=== PATIENT | male | born 1935 | race Caucasian/White ===

== ENCOUNTER → 2018-03-13 | Outpatient (CLI) | payer OTHER, BC ==
[~2018-03-13] VITALS: Ht 172.7 cm; Wt 63.5 kg
[~2018-03-13] MED LIST: ASPIRIN81 M2 PO; BETAPACE AF120 MG PO; COSOPT OCUMETER10 M1 OPHTHALMIC; COUMADIN 5 MG TA5 M1 PO; FOLIC ACID1 MG PO; LUMIGAN2.5 M1 OP; LUTEIN20 M1 PO; METHOTREXATE 22.5 MG PO; SIMVASTATIN40 MG PO; VITAMIN B-122500 MCG SUBLING; VITAMIN D3400 UNIT PO; XALATAN2.5 ML OPHTHALMIC
--- NOTE | 2018-03-15 10:25 | P ---
[facility] [place] [address] PROCEDURE REPORT Name: BRAXTONDIMPLE Susan Room #: NATAN GILBERTChichi Lin#: [id number] Admission: 03/13/18 Attend Phys: Dayday Yadav Discharge: Date of : 35 Report #: [id number] THIS REPORT FOR: //name// CC: Dayday Bruce DATE OF SERVICE: 03/13/2018 PROCEDURE PERFORMED: Colonoscopy with polypectomies. HISTORY OF PRESENT ILLNESS: The patient is an 82-year-old male who presents today for screening colonoscopy. Last colonoscopy was 25-30 years ago. He denies any symptoms. However, he apparently has had a positive Cologuard test recently. No family history of colon cancer. PROCEDURE: The risks and benefits of the procedure were explained to the patient, those risks including but not limited to bleeding, perforation and the risk of sedation. He understood these risks and gave informed consent. Sedation was given using propofol per anesthesia. Next, a digital rectal exam was initially performed, which was normal. Next, using a standard Olympus colonoscope, the scope was placed in the patient's anus and advanced under direct vision to the cecum. The overall prep was good. In the cecum, there was a 6 mm sessile polyp, this was removed by snare cautery, otherwise normal. The ileocecal valve was normal. In the proximal ascending colon, a 1.5 cm pedunculated polyp was noted. This was removed by snare cautery as well. In the transverse colon, two polyps are noted. The smallest was 4 mm and removed by cold forceps, the larger was 6 mm and removed by snare cautery. In the descending colon, another 8 mm sessile polyp also removed by snare cautery. The sigmoid colon was normal. The rectal mucosa was normal. On retroflexion, small nonbleeding internal hemorrhoids were noted. The scope was then withdrawn and the procedure terminated. The patient tolerated the procedure well. IMPRESSION: 1. Multiple polyps as described above. 2. Internal hemorrhoids. 3. Otherwise, normal colonoscopy. RECOMMENDATIONS: 1. Await biopsy results. 2. Due to the patient's age, if biopsies are negative for dysplasia or malignancy, no repeat colonoscopy would be needed. [address] [address] PROCEDURE REPORT Name: DIMPLE LIMON Room #: REG WILEY Lin#: [id number] Admission: 03/13/18 Attend Phys: Dayday Yadav Discharge: Date of : 35 Report #: [id number] Thank you for allowing me to participate in his care. <ELECTRONICALLY SIGNED> By: Dayday Valencia MD 03/15/18 1025 1109 30 Dayday Valencia MD /nt
--- NOTE | 2018-03-15 15:06 | PATH ---
[facility] [place] [address] PATHOLOGY RPT PROCEDURE Name: DIMPLE LIMON Susan Room #: REG WILEY Radha.#: [id number] Admission: 03/13/18 Date of : 35 Discharge: Report #: [id number] Path Case #: [id number] [facility] Accession Number: [id number] . 01 Material submitted: . PART A: POLYP AT CECUM PART B: POLYP AT ASCENDING COLON PART C: POLYP AT TRANSVERSE COLON X2 PART D: POLYP AT DESCENDING COLON . 01 Clinical history: . Pre-OP DX: Screening Post-OP DX: Colon polyps . 02 Diagnosis: A. Polyp, cecum, endoscopic biopsy: - Tubular adenoma. - Negative for high-grade dysplasia. . B. Polyp, at ascending colon, endoscopic biopsy: - Tubular adenoma. - Negative for high-grade dysplasia. - Base/stalk showing unremarkable mucosa. . C. Polyp x 2, at transverse colon, endoscopic biopsy: - Tubular adenoma identified in two fragments. - Negative for high-grade dysplasia. . D. Polyp, descending colon polyp, endoscopic biopsy: - Tubular adenoma. - Negative for high-grade dysplasia. (IUV:pit 03/14/2018) QTP/03/14/2018 . 02 Electronically signed: . Yuni Myers MD, Pathologist NPI- [id number] . 01 Gross description: . A. Received in formalin labeled "Dimple Limon, polyp at cecum," are 3 segments of guan soft tissue measuring 1.2 x 0.9 x 0.4 cm in aggregate dimensions and ranging from 0.4 to 0.6 cm in maximum dimension. The specimen is submitted entirely in cassette A1. . B. Received in formalin labeled "Dimple Limon, polyp at ascending colon," is a 1.4 x 0.8 x 0.8 cm polypoid piece of guan soft tissue with a stalk measuring 0.2 cm in length and 0.4 cm in diameter[place] [address] PATHOLOGY RPT PROCEDURE Name: DIMPLE LIMON T Room #: REG WILEY Garcia.#: [id number] Admission: 03/13/18 Date of : 35 Discharge: Report #: [id number] Path Case #: [id number] stalk is inked and the specimen is sectioned perpendicular to the margin and entirely submitted in cassette B1 and B2. . C. Received in formalin labeled "Edis Limonr, polyp transverse colon x2," are 2 segments of guan soft tissue measuring 0.7 x 0.3 x 0.2 cm in aggregate dimensions and ranging from 0.3 to 0.4 cm in maximum dimension. The specimen is submitted entirely in cassette C1. . D. Received in formalin labeled "Darin, [place], polyp at descending colon," is a single segment of guan soft tissue measuring 0.5 cm in maximum dimension. The specimen is entirely submitted in cassette D1. (TSD; 03/13/2018) TOB/TOB . 02 Pathologist provided ICD-10: D12.0, D12.2, D12.3, D12.4 . 02 CPT . 574897, 689953, 394256, 584571 Specimen Comment: A courtesy copy of this report has been sent to Specimen Comment: [phone], . Specimen Comment: Report sent to / DR DECKER Specimen Comment: A duplicate report has been generated due to demographic updates. Performed at: [address] [facility], [place] [id number] MD Leonardo Mensah MD Phone: [phone] Performed at: [address] [id number] MD Yuni Myers MD Phone: [phone]
== END | disposition home or self-care (01) ==
LOC: GI 08:51
DX: Z12.11 Encounter for screening for malignant neoplasm of colon (principal); D12.0 Benign neoplasm of cecum; D12.2 Benign neoplasm of ascending colon; D12.3 Benign neoplasm of transverse colon; D12.4 Benign neoplasm of descending colon; K64.8 Other hemorrhoids; I10 Essential (primary) hypertension; E78.5 Hyperlipidemia, unspecified; I48.91 Unspecified atrial fibrillation; H40.9 Unspecified glaucoma; Z79.82 Long term (current) use of aspirin; Z79.899 Other long term (current) drug therapy; Z79.01 Long term (current) use of anticoagulants; Z87.891 Personal history of nicotine dependence; Z96.641 Presence of right artificial hip joint; Z98.890 Other specified postprocedural states
CPT/HCPCS: 62110; 62900

== ENCOUNTER → 2018-11-29 | Outpatient (CLI) | payer OTHER, BC | LOC: CAT 14:04 | DX: J90 Pleural effusion, not elsewhere classified (principal); R91.8 Other nonspecific abnormal finding of lung field; J98.11 Atelectasis; R91.1 Solitary pulmonary nodule; J84.10 Pulmonary fibrosis, unspecified; J43.9 Emphysema, unspecified; M47.819 Spondylosis without myelopathy or radiculopathy, site unspecified; M48.54XA Collapsed vertebra, not elsewhere classified, thoracic region, initial encounter for fracture; K40.90 Unilateral inguinal hernia, without obstruction or gangrene, not specified as recurrent; Z96.641 Presence of right artificial hip joint ==

== ENCOUNTER → 2018-12-11 | Outpatient (CLI) | payer OTHER, BC | LOC: PET 09:09 | DX: R91.8 Other nonspecific abnormal finding of lung field (principal); J98.11 Atelectasis; K40.90 Unilateral inguinal hernia, without obstruction or gangrene, not specified as recurrent; Z96.641 Presence of right artificial hip joint ==

== ENCOUNTER → 2019-02-03 | Outpatient (CLI) | payer OTHER, BC | LOC: CAT 11:20 | DX: R91.1 Solitary pulmonary nodule (principal); S22.009A Unspecified fracture of unspecified thoracic vertebra, initial encounter for closed fracture; R91.8 Other nonspecific abnormal finding of lung field; J98.11 Atelectasis; I25.10 Atherosclerotic heart disease of native coronary artery without angina pectoris; I70.0 Atherosclerosis of aorta; M47.819 Spondylosis without myelopathy or radiculopathy, site unspecified; X58.XXXA Exposure to other specified factors, initial encounter; Y93.89 Activity, other specified; Y92.89 Other specified places as the place of occurrence of the external cause; Y99.8 Other external cause status ==

== ENCOUNTER → 2019-07-21 | Outpatient (CLI) | payer OTHER, BC | LOC: CAT 13:43 | PROVIDERS: ATTEND Internal Medicine Pulmonary Disease | DX: R91.8 Other nonspecific abnormal finding of lung field (principal); M43.8X4 Other specified deforming dorsopathies, thoracic region ==

== ENCOUNTER 2019-11-21 04:40 | Inpatient (IN) | payer OTHER, BC ==
[~2019-11-21] VITALS: Ht 172.7 cm; Wt 67.1 kg
--- NOTE | ~2019-11-21 | HC ---
[facility] [place] [address] CONSULTATION Name: DIMPLE LIMON Room #: 445-P [facility] IN .R.#: [id number] Admission: 11/21/19 Attend Phys: Devon Maza, Discharge: Date of : 35 Report #: [id number] THIS REPORT FOR: cc: Anthony Bruce MD, Neal A. MD Smithson, David G. MD ~ DATE OF SERVICE: 11/26/2019 HISTORY OF PRESENT ILLNESS: The patient is an 84-year-old white male who fell at home when his socks apparently slipped on the hardwood. He was noted to have a periprosthetic comminuted complex fracture of his right proximal femur. 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 He is limited to less than 20 pounds weightbearing right lower extremity. We are seeing him in Rehabilitation Medicine consultation. PAST MEDICAL HISTORY: Includes atrial fibrillation, on anticoagulation, history of hypertension, elevated lipids. He had a prior right total hip arthroplasty, history of rheumatoid arthritis and he has a large left-sided inguinal hernia with an enlarged scrotum. MEDICATIONS: Please see the full medication listing. HABITS: Past tobacco. No recent usage. ALLERGIES: No known drug allergies. SOCIAL HISTORY: Lives with his , split level house. There are 7 plus 7 steps to get up to a level where there is a bathroom. If he goes in to the garage, he could stay on one level, but there is not a bedroom down there and he would need to utilize a commode as there is not a bathroom. His is ambulatory without gait aids, although he notes she has had some fractures herself in the past. REVIEW OF SYSTEMS: Did not offer any current complaints of chest pain, shortness of breath or abdominal discomfort. PHYSICAL EXAMINATION: GENERAL: An 84-year-old white male, in no obvious distress. He is very pleasant. VITAL SIGNS: Temperature 97.9, pulse 59, respirations 18, blood pressure 125/66. GENERAL: He is alert. He is oriented, appears to be a reasonable historian. HEENT: Facies are symmetric. EXTREMITIES: He has functional range of motion of both upper extremities. Strength is grade 4+/5. DTRs are trace to 1 in his lower extremities. No focal [address] [address] CONSULTATION Name: DIMPLE LIMON Room #: 445-P [facility] IN ..#: [id number] Admission: 11/21/19 Attend Phys: Devon Maza, Discharge: Date of : 35 Report #: [id number] calf swelling. Upon examination of his groin, he does have the very large scrotal mass. This was not examined. He notes he has had it for a number of years. His right hip is dressed with the drain in place. There is no focal calf swelling. He can dorsiflex the right ankle. He has been max assist coming to stand, was able to take a couple of hops mod assist during the transfer. ASSESSMENT: An 84-year-old white male with the following problem list: 1. 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 2. History of atrial fibrillation, on anticoagulation. 3. Large inguinal hernia with scrotal mass. 4. Hypertension. 5. Elevated lipids. 6. Prior history of the right total hip replacement. 7. History of rheumatoid arthritis. 8. Recent confusion appears to be improving. 9. He is noted to have hyponatremia and his last sodium is 125. PLAN: We are assessing the patient's tolerance for therapies. We will need to also assess his 's ability to assist the patient if need be. I am uncertain if he would qualify for an acute [address] [place] [address] inpatient rehabilitation stay. At this point, we are going to follow along with you. By: 1220 0233 Franc Spring MD /ARABELLA
[2019-11-21 04:42] VITALS: BP 123/102
[2019-11-21] MEDS ORDERED: WARFARIN SODIUM4 MG PO (05:28)
[2019-11-21] MEDS ORDERED: LUMIGAN2.5 M1 OP (05:29)
[2019-11-21 05:30] LABS: ABSOLUTE NEUTROPHILS 4.2 thou/uL (1.4-8.2); BASOPHILS 0.6 % (0.0-2.0); EOSINOPHILS 2.1 % (0.0-3.0); HEMATOCRIT 36.7 % (42.0-52.0); HEMOGLOBIN 12.3 gm/dL (14.0-18.0); LYMPHOCYTES 11.6 % (24.0-44.0); MCH 31.1 pg (26.0-34.0); MCHC 33.4 g/dL (28.0-37.0); MONOCYTES 7.6 % (1.0-8.0); PLATELET COUNT 231 thou/uL (150-400); POLYS 78.1 % (36.0-66.0); RBC 3.95 mil/uL (4.50-6.00); RDW 14.1 % (10.5-14.5); WBC 5.3 thou/uL (4.0-11.0)
[2019-11-21] MEDS ORDERED: ASA81BEC PO (05:31)
[2019-11-21] MEDS ORDERED: FOSAMAX 70 MG T70 MG PO (05:32)
[2019-11-21] MEDS ORDERED: XALATAN2.5 ML OPHTHALMIC (05:32)
[2019-11-21] MEDS ORDERED: VITAMIN C500 M1 PO (05:33)
[2019-11-21] MEDS ORDERED: NORVASC 2.5 MG2.5 M1 PO (05:34)
[2019-11-21] MEDS ORDERED: FISH OIL 1,0001 EAC9 PO (05:34)
[2019-11-21 05:52] LABS: CALCIUM 8.4 mg/dL (8.5-10.1); CREATININE 0.5 mg/dL (0.7-1.3); POTASSIUM 3.4 mmol/L (3.5-5.1)
[2019-11-21 06:00] LABS: ALBUMIN 3.1 g/dL (3.4-5.0); DIRECT BILIRUBIN 0.2 mg/dL (<0.1-0.2); TOTAL BILIRUBIN 0.7 mg/dL (0.2-1.0); TOTAL PROTEIN 7.2 g/dL (6.4-8.2)
[2019-11-21 07:05] LABS: APTT 41.7 Seconds (24.5-32.8); INR 2.1; PROTIME 21.1 Seconds (9.3-11.4)
--- NOTE | 2019-11-21 07:52 | NUR ---
CALLED PT'S RAI ON TWO PHONE NUMBERS PROVIDED LEFT VM ON CELLPHONE HOME PHONE JUST RANG AND RANG
--- NOTE | 2019-11-21 11:37 | EKG ---
[facility] [place] [address] ELECTROCARDIOGRAM REPORT Name: BRAXTONHECTORTonya Davis Room #: 170-11 ADM IN M.R.#: [id number] Admission: 11/21/19 Attend Phys: Devon Maza, Discharge: Date of : 35 Report #: [id number] THIS REPORT FOR: cc: Anthony Bruce MD, Neal A. 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
[2019-11-21 13:33] VITALS: BP 127/55
--- NOTE | 2019-11-21 19:09 | NUR ---
Admitted pt. at 1600. Full admission performed. Consulted physician via phone call. Orders given, orders activiated. Pt. is calm and cooperative. Pt. not in pain currently. Fall percautions in place.
[2019-11-21 20:08] VITALS: BP 145/66
--- NOTE | 2019-11-22 04:08 | NUR ---
PT AOX4 WITH INTERMITTENT FORGETFULNESS. PT REPORTS PAIN 5/10 IN RIGHT HIP. PAIN NOTED TO WORSEN WITH TACTILE STIMULATION AND MOVEMENT. PT RECEIVING PRN PO NORCO Q4HR WITH PRN IV MORPHINE Q2HR AVAILABLE. PT TOLERATING PO INTAKE OF FLUIDS AND REGULAR DIET. DR. HERRON OBSERVED COORDINATING CARE WITH PT, PT TO CONTINUE REGULAR DIET THROUGHOUT THIS SHIFT, NPO AT MIDNIGHT ORDER CANCELLED. FREQUENT REPOSITIONING ENCOURAGED. PT NOTED TO SHIFT INDEPENDENTLY WHILE IN BED, REQUIRING ASSIST WITH MOVING UP IN BED. PT CONTINUES RESTING IN BED THROUGHOUT SHIFT, URINAL PROVIDED. PT ENCOURAGED TO NOTIFY STAFF FOR ALL NEEDS, CALL LIGHT WITHIN REACH, BED ALARM ON, BED IN LOWEST POSITION, FREQUENT MONITORING WILL CONTINUE.
[2019-11-22 05:41] VITALS: BP 159/63
[2019-11-22 05:47] VITALS: BP 159/63
[2019-11-22 07:56] LABS: INR 1.8
--- NOTE | 2019-11-22 10:36 | NUR ---
discussed during prime time with bedside nurse, pt inr needs to come down before can have procedure for fx femur. no weekend dc. will cont following as needed for dc needs.
[2019-11-22 17:50] VITALS: BP 162/66
--- NOTE | 2019-11-22 18:18 | NUR ---
Assumed care of pt. at 0700. Pt. calm and cooperative. Pt. informed that he would not be receiving surgery until the earliest being sunday d/t previous medical records needing to be reviewed by phsyicians for surgical purposes. Pt. complained of pain and requested hydrocodone rather than morphine do to fear of constipation and fear of past experience with disimpaction. Pt. had CT performed in the afternoon on RLE. Fall precautions in place.
--- NOTE | 2019-11-23 02:32 | NUR ---
PLEASANT, SLEEPING WELL AFTER HYDROCODONE AT HS, VOIDING WELL WITH URINAL HE NAVIGATES AROUND HIS SIZABLE LEFT HERNIA. APPRECIATES HAVING HIS EYEDROPS RESUMED AT HS. AWARE THAT NECESSARY SURGERY WILL NOT HAPPEN TODAY
[2019-11-23 08:36] VITALS: BP 151/73
[2019-11-23 09:25] LABS: HEMATOCRIT 39.2 % (42.0-52.0); HEMOGLOBIN 13.2 gm/dL (14.0-18.0); MCH 31.2 pg (26.0-34.0); MCHC 33.6 g/dL (28.0-37.0); MCV 92.7 fL (80.0-100.0); RBC 4.23 mil/uL (4.50-6.00); RDW 14.3 % (10.5-14.5); WBC 10.1 thou/uL (4.0-11.0)
[2019-11-23 09:39] LABS: CALCIUM 8.1 mg/dL (8.5-10.1); CREATININE 0.5 mg/dL (0.7-1.3); POTASSIUM 3.9 mmol/L (3.5-5.1)
--- NOTE | 2019-11-23 10:03 | NUR ---
PT CARE ASSUMED AT 0700. A&Ox4. PT IN ROOM WITH PAIN SCALE 4/10 WHEN NOT MOVING. REFUSING PAIN MEDICATION EVEN AFTER PAIN EDUCATION WAS GIVEN. NO SURGERY AT THIS POINT UNTIL MD'S REVIEW THIS CASE. PT HAS A GROIN HERNIA THAT HE IS PUSHING OFF TO HAVE REPAIRED AT THIS MOMENT. IV PATENT WITH NO REDNESS OR EDEMA, SALINE LOCKED. MORNING MEDICATIONS GIVEN. EYEDROPS IN IV BIN, FALL PROTOCOL IN PLACE. CALL LIGHT IN REACH. WILL CONTINUE TO MONITOR. PT REQUESTED TWO URINALS AT BEDSIDE AT ALL TIME.
[2019-11-23 16:25] VITALS: BP 155/78
[2019-11-23 19:59] VITALS: BP 150/68
[2019-11-24 04:00] VITALS: BP 145/82
[2019-11-24 06:13] LABS: INR 1.2; PROTIME 12.4 Seconds (9.3-11.4)
--- NOTE | 2019-11-24 06:32 | HC ---
[facility] [place] [address] CONSULTATION Name: HECTOR LIMONTonya Susan Room #: 445-P [facility] IN M.R.#: [id number] Admission: 11/21/19 Attend Phys: Devon Maza, Discharge: Date of : 35 Report #: [id number] THIS REPORT FOR: cc: Anthony Bruce MD, Neal A. MD Deardorff, Valerie A. MD ~ CC: Devon Bruce DATE OF SERVICE: 11/21/2019 REASON FOR CONSULTATION: Right hip fracture. HISTORY OF PRESENT ILLNESS: The patient is an 84-year-old male who slipped today upstairs while going to the bathroom and sustained a right periprosthetic femur fracture. He denied loss of consciousness. Denies other complaints and complains of right hip and thigh pain. PAST MEDICAL HISTORY: Significant for atrial fibrillation, hypertension, rheumatoid arthritis, hyperlipidemia. There is apparently a lung mass, Dr. Carey is monitoring here at [facility]. PAST SURGICAL HISTORY: Cataract surgery, right total hip replacement done in 2013 at [facility]. SOCIAL HISTORY: He lives with his . Does not use any ambulatory aids inside his house, is a former smoker. Alcohol use is unknown. ALLERGIES: REPORTS SOME MILD ALLERGY TO AN ANTIBIOTIC THAT RESULTED IN A RASH. PRIMARY CARE PHYSICIAN: His primary care doctor is Dr. Bruce. HOME MEDICATIONS: Include dorzolamide/timolol, warfarin, bimatoprost, aspirin, alendronate, latanoprost, vitamin C, omega 3, amlodipine, methotrexate, sotalol, cholecalciferol, lutein, folic acid, and cyanocobalamin. REVIEW OF SYSTEMS: NEUROLOGIC: Denies numbness or tingling. MUSCULOSKELETAL: See HPI. LABORATORY DATA: Done on the date of admission; white blood cell count 5.3, hemoglobin 12.3, hematocrit 36.7, platelet count 231. INR is 2.1. Chemistry is grossly abnormal with a low sodium of 134, potassium 3.4, albumin is low at 3.1. His COVID test is negative. PHYSICAL EXAMINATION: [address] [address] CONSULTATION Name: DIMPLE LIMON Room #: 445-P [facility] IN [facility].#: [id number] Admission: 11/21/19 Attend Phys: Devon Maza, Discharge: Date of : 35 Report #: [id number] GENERAL: The patient is alert and oriented, interacts appropriately. He is a well-developed, well-nourished male in no acute distress. He has normal mood and affect, converses well. VITAL SIGNS: Show a temperature of 37.2, heart rate 60, respiratory rate 16, blood pressure 145/66, pulse oximetry is 95% on room air. EXTREMITIES: Examination of his bilateral upper extremities: Skin is clean, dry and intact. He has grossly normal motor strength and sensation is intact. He is able to move his fingers, forearms, wrists, hands and elbows without difficulty and shoulders without pain. He has no tenderness to palpation. BILATERAL LOWER EXTREMITY EXAMINATION: He has some chronic changes inserted. Some skin changes consistent with venous stasis. He has 2+ dorsalis pedis pulses. He wiggles his toes. He has somewhat of a right mild medial-sided knee joint tenderness, which he reports is chronic. There is mild pain with right knee range of motion. There is no other tenderness to palpation in the entire right lower extremity except for the right thigh. There is no pain with full range of motion. There is grossly normal strength and stability and sensation. Left lower extremity exam, sensation is intact to light touch throughout. He wiggles his toes. 2+ dorsalis pedis pulse, normal. Grossly normal strength, motor and stability and sensation. RADIOGRAPHS: AP pelvis, AP and lateral of the left hip show a total hip periprosthetic fracture with some lateral positioning of the implant that extends almost to the tip of the implant. IMPRESSION AND PLAN: Left periprosthetic hip fracture with an unstable implant. I will discuss with my one of my [facility] partners. Most likely, we will plan for surgery on Sunday or Sunday depending on the availability of surgeon and implant. Most likely, this will need to be converted to a longer stem total hip arthroplasty. Thank you very much. The patient and his gave a strong desire to avoiding any vitamin K due to prior history of severe adverse reaction with a family member. We discussed that I would relay their wishes. <ELECTRONICALLY SIGNED> By: Isaura Murrieta MD 11/24/19 0632 31 [id number] Isaura Murrieta MD /nt
--- NOTE | 2019-11-24 07:35 | NUR ---
ASSUMED PT CARE AT 1900.PT DENIED PAIN THIS SHIFT.PT REPOSITIONED WHILE IN BED.REPORTS PAIN WITH MOVEMENT BUT REF TO TAKE PAIN MED.PT HAS BEEN NPO SINCE [place].MOUTH SWAB PROVIDED.PT WNATS TO KNOW WHAT TIME HIS SURGERY WILL BE.AM NURSE TO INFORM PT SOON THE INFORMATION IS AVAILABLE.REPORT TO AM NURSE.
[2019-11-24 08:00] VITALS: BP 157/80
--- NOTE | 2019-11-24 10:18 | NUR ---
SPOKE WITH PRE OP PT'S SURGERY IS SCEDULED FOR 17:30 GAVE SOTALOL HOLD ALL OTHER MEDS. PT IS NPO
--- NOTE | 2019-11-24 16:43 | NUR ---
ON-GOING ASSESSMENT: PT IS TO GO TO THE OR TODAY FOR SURGERY FOR HIP FX. CM WILL CONTINUE TO FOLLOW.
[2019-11-24 19:54] VITALS: BP 134/70
[2019-11-25] VITALS (9 sets, daily range): BP systolic 122–156; BP diastolic 61–78
--- NOTE | 2019-11-25 04:20 | NUR ---
ASSUMED PT CARE 1899.PT ALERT WITH A LITTLE CONFUSION.PT'S CONFUSION INCREASED THE NIGHT WENT BY.PT CALLED THE NURSES STATION COUPLE OF TIMES SAYING THAT HE IS ALONE IN THE BASEMENT AT THE HOSPITAL.hE ALSO STATED THAT THE PHTSICIAN TOLD HIM THAT HE WILL BE COMING TO SEE HIM BUT HE DIDN'T SHOW UP.PT WAS REORIENTED SEVERAL TIMES.PT WAS OBSERVED GETTING OUT OF BED SEVERAL TIMES WITHOUT ASSISTANCE.PT VERY APOLOGETICAL EACH TIME ABOUT HIS BEHAVIOR.PT STATED"MY WILL BE VERY SUPRISED AT MY BEHAVIOR THIS NIGHT"URINAL AT BEDSIDE WITH DARK YELLOW URINE NOTED.BOTANICAL TECHNICAL OFFICER ON DUTY VISITED PT AT THE TIME,UA ORDER NOTED AND CARRIED OUT.PT NPO SINCE [place].WILL CONT TO MONITOR.
[2019-11-25 06:08] LABS: URINE BILIRUBIN NEGATIVE (Negative); URINE BLOOD TRACE (Negative); URINE CLARITY CLEAR; URINE COLOR YELLOW; URINE GLUCOSE-RANDOM* NEGATIVE (Negative); URINE KETONES 1+ (Negative); URINE LEUKOCYTES NEGATIVE (Negative); URINE NITRITE NEGATIVE (Negative); URINE PROTEIN (DIPSTICK) 1+ (Negative)
[2019-11-25 07:05] LABS: BACTERIA None Seen /HPF (None Seen); CASTS None Seen /LPF (None Seen); CRYSTALS None Seen /LPF (None Seen); SQUAMOUS 0-3 Few /LPF (0-3); URINE RBC 0-2 Rare /HPF (0-2); URINE WBC 0-5 Rare /HPF (0-5)
[2019-11-25 07:47] LABS: HEMATOCRIT 36.6 % (42.0-52.0); HEMOGLOBIN 12.5 gm/dL (14.0-18.0); MCH 31.4 pg (26.0-34.0); MCHC 34.2 g/dL (28.0-37.0); MCV 91.9 fL (80.0-100.0); RBC 3.98 mil/uL (4.50-6.00); RDW 13.9 % (10.5-14.5); WBC 9.3 thou/uL (4.0-11.0)
[2019-11-25 07:54] LABS: CALCIUM 8.1 mg/dL (8.5-10.1); CREATININE 0.6 mg/dL (0.7-1.3); POTASSIUM 3.8 mmol/L (3.5-5.1)
--- NOTE | 2019-11-25 11:33 | NUR ---
PT CARE ASSUMED AT 0700. A&Ox4. PT MAKING STATEMENTS THAT HIS IS RESTING UPSTAIRS AND THAT HE IS IN A HOTEL. DR. DECKER INFORMED AND ADDED FLUIDS TO THE PATIENTS MAR. URINE CULTURE CAME BACK NEGATIVE. PT STATING HE IS IN NO PAIN. PT INFORMED OF SURGERY TIME. AT BED SIDE. IV PATENT WITH NO REDNESS OR EDEMA. FLUIDS INFUSING. SCD'S IN PLACE. NPO SINCE MIDNIGHT. PT COMFORTABLY LAYING IN BED AWAITING SURGERY. FALL PROTOCOL IN PLACE. CALL LIGHT IN REACH. SWABS AT BEDSIDE TO MOISTEN MOUTH.
--- NOTE | 2019-11-25 15:35 | NUR ---
ON-GOING ASSESSMENT: PT IS OUT OF HIS ROOM FOR SURGERY. CM ATTEMPTED TO CONTACT PATIENTS X2. CM WILL FOLLOW UP WITH PATIENT.
--- NOTE | 2019-11-26 04:50 | NUR ---
PT WAS STILL DROWSY BUT EASILY AROUSABLE AT START OF SHIFT.C/O PAIN ON HIS R HIP,MANAGED WITH MED.SCD/KNEE HIGH KATHRIN AND ABDULAZIZ DRSG IN PLACE.HEMOVAC TO HIS R HIP,100ML NOTED SO FAR.PT MORE RESTED THIS SHIFT COMPARED TO THE LAST,SOMEHOW BACK TO HIS BASELINE.PT TOLERATED CLEAR LIQUIDS WELL.URINAL AT BEDSIDE.WILL CONT TO MONITOR.
[2019-11-26 06:04] LABS: HEMATOCRIT 33.1 % (42.0-52.0); HEMOGLOBIN 11.3 gm/dL (14.0-18.0); MCH 31.2 pg (26.0-34.0); MCHC 34.1 g/dL (28.0-37.0); MCV 91.5 fL (80.0-100.0); RBC 3.62 mil/uL (4.50-6.00); RDW 14.1 % (10.5-14.5); WBC 8.6 thou/uL (4.0-11.0)
[2019-11-26 07:35] VITALS: BP 125/66
[2019-11-26 07:41] LABS: CALCIUM 7.9 mg/dL (8.5-10.1); CREATININE 0.5 mg/dL (0.7-1.3); POTASSIUM 4.4 mmol/L (3.5-5.1)
--- NOTE | 2019-11-26 13:25 | O ---
[facility] [place] [address] OPERATIVE REPORT Name: DIMPLE LIMON Room #: 445-P [facility] M.R.#: [id number] Admission: 11/21/19 Attend Phys: Devon Maza, Discharge: Date of : 35 Report #: [id number] THIS REPORT FOR: cc: Anthony Bruce MD, Neal A. MD Clymer, David J. MD ~ CC: Devon Bruce DATE OF SERVICE: 11/25/2019 PREOPERATIVE DIAGNOSIS: Periprosthetic complex comminuted fracture, right proximal femur. POSTOPERATIVE DIAGNOSIS: Periprosthetic complex comminuted fracture, right proximal femur. PROCEDURE: Removal of old failed femoral stem, right femur and revision total hip arthroplasty using revision femoral stem, side plate and multiple cerclage cables. SURGEON: Franc Mccurdy MD INDICATIONS: This 84-year-old gentleman has done well with his right total hip until he fell resulting in a complex comminuted fracture of the proximal femur. We discussed treatment options and elected to go ahead with revision using a longer revision femoral component and the plate with cables. DESCRIPTION OF PROCEDURE: The patient was taken to the operating room where he was placed under general anesthesia. Prophylactic intravenous antibiotics were administered. He was turned to the left lateral decubitus position. The right hip, thigh and leg were meticulously prepped and draped. A long skin incision was made through the old proximal scar and extending distally along the lateral femur. This was extended through fascia exposing the femur. A complex comminuted displaced fracture was identified. Reduction was not feasible with the old femoral stem in place as it had probably been migrated distally. The proximal aspect of the femoral component was visualized with a posterior approach. The capsule and short external rotators were preserved as much as was possible. The old femoral component was loose and was removed without difficulty. Once this was accomplished, the fractures could be realigned in a satisfactory fashion and then secured temporarily with several bone clamps. A size 11 cable trochanteric side plate was then positioned appropriately and secured temporarily with four cables and the bone clamps. Once this was established, the canal could be visualized and was sequentially reamed and trialed using a Redapt femoral revision stem system. The size 15 stem seemed to fit quite nicely and a trial reduction was performed and the hip seemed to be [address] [address] OPERATIVE REPORT Name: LIMONDIMPLE Room #: 445-P [facility].#: [id number] Admission: 11/21/19 Attend Phys: Devon Maza, Discharge: Date of : 35 Report #: [id number] nicely reduced and stable when using a standard offset neck angle and a +0 neck length. This trial component was removed and the permanent Will and Nephew Redapt femoral component was assembled on the backtable. This is a size 15 240 mm length standard offset stem. This was impacted into the canal in approximately 15-20 degrees of anteversion. A 36-mm head with a +0 neck length was then impacted on to the Enamorado taper. The hip was reduced. Alignment, range of motion, stability and leg length were assessed and felt to be satisfactory. At this point, the cables were sequentially tightened down and several additional cables were added as the bone clamps were removed. A total of 8 cables were applied. These seemed to have excellent purchase and seemed to hold the long, complex comminuted fracture back in good position. There seemed to be good purchase with the femoral component. Intraoperative C-arm views were obtained revealing acceptable alignment of the component and the plate and cables. The wound was copiously irrigated. A single Hemovac was left deep in the wound exiting through a separate stab incision. The muscle fascia was closed with multiple #1 Vicryl sutures. The fascia was also closed with #1 Vicryl. The subcutaneous tissues were closed with 0 Monocryl. The skin was closed with skin paul. A sterile dressing was applied. The patient was awakened and returned to recovery room in good condition. At the conclusion of the case, I also aspirated the right knee where there was a moderate knee effusion. This appears to be an inflammatory, probably degenerative synovitis-type effusion. There was very minimal blood-tinged in the fluid, suggesting this was probably not a significant traumatic effusion. C-arm views of the knee in the operating room did not reveal evidence of fracture, but rather significant chronic degenerative change there. The patient was returned to recovery room in good condition. <ELECTRONICALLY SIGNED> By: Franc Mccurdy MD 11/26/19 [id number] [id number] Franc Mccurdy MD /nt
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
[2019-11-26 15:35] VITALS: BP 111/54
--- NOTE | 2019-11-26 18:59 | NUR ---
PT CARE ASSUMED AT 0700. A&Ox4. PT UP TO THE RECLINER FOR 2 HOURS WITH PT. HEMOVAC REMOVED. IV PATENT WITH NO REDNESS OR EDEMA, FLUIDS INFUSING. UPDATE GIVEN TO OVER THE PHONE. PICODRESSING SATURATED WITH BLOOD. DRESSING CHANGED. PT MIND IS MUCH CLEARER TODAY. STARTING 1800 PT STARTED TO BECOME A LITTLE CONFUSSED AGAIN BUT WILL TELL YOU THAT HE IS STARTING TO . VITALS STABLE. KATHRIN MATILDE AND SCD'S IN PLACE. FALL PROTOCOL IN PLACE. CALL LIGHT IN REACH. PT DECLINED FLU VACCINE TODAY BUT WOULD LIKE IT ON DISCHARGE DAY. PAIN MEDICATION GIVEN FOR PAIN. ICE PACK IN PLACE. ON HIP PRECAUTIONS. PT/OT/RT ON BOARD.
--- NOTE | 2019-11-27 03:08 | NUR ---
PT ASSESSED AT START OF SHIFT. A&OX3 FORGETFULL BUT EASILY REORIENTED. HAD A HUGE BM AT START OF SHIFT. URINAL AT BEDSIDE. HYDROCODONE GIVEN FOR PAIN. IV INTACT WITH IVF. FALL PREC IN PLACE. PT REPOSITIONED FOR COMFORT AND SLEPT THROUGH THE NIGHT. WILL CONT TO MONITOR.
[2019-11-27 03:55] VITALS: BP 148/78
[2019-11-27 06:23] LABS: HEMATOCRIT 32.3 % (42.0-52.0); HEMOGLOBIN 10.8 gm/dL (14.0-18.0); MCH 31.1 pg (26.0-34.0); MCHC 33.3 g/dL (28.0-37.0); MCV 93.2 fL (80.0-100.0); RBC 3.46 mil/uL (4.50-6.00); WBC 11.7 thou/uL (4.0-11.0)
--- NOTE | 2019-11-27 09:39 | NUR ---
ON-GOING ASSESSMENT: CM REVIEWED CHART AND SPOKE WITH LIAMILKA AT [facility] WHO REPORTS THEY CAN ACCEPT PATIENT BUT WILL NOT LIKELY HAVE A BED UNTIL TOMORROW. CM NOTIFIED PATIENTS WHO ASKED IF ANY POSITIVE CASES OF COVID THERE. LIASON REPORTS THEY HAD A STAFF MEMBER TEST POSITIVE BUT NO OTHER STAFF OR PATIENTS HAVE TESTED POSITIVE AND THEY JUST TESTED EVERYONE. SHE REPORTS THEY WILL TEST ALL PATIENTS AND STAFF EVERY 7 DAYS FOR THE NEXT 2 WEEKS. CM NOTIFIED PATIENTS AND SHE IS OK WITH PLAN OF DISCHARGING TO [facility]. PLAN IS TO DISCHARGE LIKELY SUNDAY TO [facility]. CM WILL CONTINUE TO FOLLOW TO ASSIST NEEDED.
[2019-11-27 15:58] VITALS: BP 112/52
[2019-11-27 19:36] VITALS: BP 108/57
--- NOTE | 2019-11-27 21:07 | NUR ---
PT CARE ASSUMED AT 0700. A&0x3 AND FORGETFUL. ABDULAZIZ DRESSING CHANGED AGAIN THIS AM DUE TO PATIENT HAVING PULLED OFF DRESSING. PT STARTING TO AROUND 1800. HIP PRECAUTIONS IN PLACE. FALL PROTOCOL IN PLACE. IV PATENT WITH NO REDNESS OR EDEMA. SALINE LOCKED. SCD'D AND KATHRIN HOSES IN PLACE. HYDROCODONE GIVEN FOR PAIN ONCE DURING SHIFT AFTER PT. PT/OT ON BOARD. PT IS DUE TO DISCHARGE TOMORROW 11/27. URINAL AT BED SITE. CALL LIGHT IN REACH. WILL CONTINUE TO MONITOR.
[2019-11-28 04:09] VITALS: BP 152/84
[2019-11-28 06:05] LABS: HEMATOCRIT 33.1 % (42.0-52.0); MCH 30.8 pg (26.0-34.0); MCHC 33.4 g/dL (28.0-37.0); MCV 92.4 fL (80.0-100.0); RBC 3.58 mil/uL (4.50-6.00); RDW 14.2 % (10.5-14.5); WBC 7.5 thou/uL (4.0-11.0)
[2019-11-28 06:15] LABS: CREATININE 0.6 mg/dL (0.7-1.3)
[2019-11-28 06:16] LABS: INR 1.1; PROTIME 11.1 Seconds (9.3-11.4)
--- NOTE | 2019-11-28 06:40 | NUR ---
PT ALERT, ORIENTED TO PERSON, FORGETFUL AND CONFUSED. PT NOTED TO BE DISORIENTED TO SITUATION, REMINDERS AND REDIRECTION GIVEN, PT FORGETFUL OF REMINDERS AND REDIRECTION. PT REMAINS PLEASANT AND COOPERATIVE WITH REPORTS OF ANXIETY. PT NOTED TO BE RESPONSIVE TO CONSOLATION AND SUPPORTIVE LISTENING. PT PT REPORTS PAIN IN RIGHT HIP. PT RECEIVING PRN PO NORCO Q4HR. PT WITHOUT IV, PER DR ORDER. PT NOTED TO REST IN BED THROUGHOUT SHIFT, NOTED TO SHIFT INDEPENDENTLY WHILE IN BED. FREQUENT REPOSITIONING ENCOURAGED. PT USING URINAL, NOTED TO HAVE DIFFICULTY WITH COORDINATION, EXTERNAL CATHETER APPLIED. PT OBSERVED GETTING OUT OF BED WITHOUT ASSIST, PT REMOVED EXTERNAL CATHETER. PT ASSISTED TO CHAIR WITH X1 ASSIST. PT TOLERATING PO INTAKE OF FLUIDS AND REGULAR DIET. PT ENCOURAGED TO NOTIFY STAFF FOR ALL NEEDS. CALL LIGHT WITHIN REACH, BED ALARM ON, BED IN LOWEST POSITION, ROOM REMAINS NEAR NURSE STATION, FREQUENT MONITORING WILL CONTINUE.
[2019-11-28 07:39] VITALS: BP 109/63
--- NOTE | 2019-11-28 07:53 | NUR ---
DR DECKER HERE TO SEE PATIENT WILL DISCHARGE TO [facility] TODAY. PT UP IN RECLINER NO PAIN OR RESP DISTRESS AT THE PRESENT
[2019-11-28] MEDS ORDERED: DEPAKOTE 250MG250 MG PO (07:54)
[2019-11-28] MEDS ORDERED: XANAX 0.25 MG0.25 MG PO (07:56)
[2019-11-28 08:55] VITALS: BP 109/63
--- NOTE | 2019-11-28 08:57 | NUR ---
ON-GOING ASSESSMENT: CM REVIEWED CHART. PT HAS ORDERS TO DISCHARE TO SNF TODAY ([facility]). WAS NOTIFIED YESTERDAY AND AGREEABLE WITH PLAN BUT REQUEST WE DONT SET UP TRANSPORTATION UNTIL AFTER 1000. TRANSPORTATION HAS BEEN ARRANGED BY [facility] FOR 1PM. CM LEFT VM WITH PATIENTS . CM FAXED DISCHARGE ORDERS TO [facility] AND CONFIRMED THEY RECEIVED THEM. CHART COPY WAS ORDERED AND ACTIVITIES THERAPIST NOTIFIED. ANITRA NOTIFIED BEDSIDE RN AND SHE HAS THE NUMBER FOR REPORT. CASE CLOSED.
--- NOTE | 2019-11-28 11:29 | NUR ---
DR COWAN HERE TO SEE PATIENT ASKED THIS NURSE TO LET [facility] WHERE PT IS DISCHARGING TODAY TO CALL HIM NEXT SUNDAY FOR ORDERS AND F/U VISIT IF INDICATED.
--- NOTE | 2019-11-28 13:22 | NUR ---
DISCHARGE PAPER REVIEWED WITH PATIENT AND PT'S SPOUSE. SIGNED AND COPY IN CHART. ALL BELONGINGS PACKED AND SENT WITH PATIENT. IV ACSESS DCD. PT W/O PAIN OPR RESP DISTRESS AT DC.
== END 2019-11-28 13:29 | DRG 467 ==
LOC: ER 04:40 → EROBS 09:03 → 4S 09:03
PROVIDERS: Emergency Medicine; Family Medicine; Nurse Practitioner Family; Orthopaedic Surgery; Orthopaedic Surgery Hand Surgery; ADMIT Surgery; ATTEND Surgery
PROC: 0SPR0JZ Removal of Synthetic Substitute from Right Hip Joint, Femoral Surface, Open Approach (ICD-10-PCS; principal; 2019-11-24)
PROC: 0SRR0JZ Replacement of Right Hip Joint, Femoral Surface with Synthetic Substitute, Open Approach (ICD-10-PCS; principal; 2019-11-24)
DX: M97.01XA Periprosthetic fracture around internal prosthetic right hip joint, initial encounter (principal); E87.1 Hypo-osmolality and hyponatremia; I48.91 Unspecified atrial fibrillation; I10 Essential (primary) hypertension; E78.5 Hyperlipidemia, unspecified; Z96.641 Presence of right artificial hip joint; K40.90 Unilateral inguinal hernia, without obstruction or gangrene, not specified as recurrent; M06.9 Rheumatoid arthritis, unspecified; N50.9 Disorder of male genital organs, unspecified; M81.0 Age-related osteoporosis without current pathological fracture; D64.9 Anemia, unspecified; K59.00 Constipation, unspecified; R41.0 Disorientation, unspecified; Z20.828 Contact with and (suspected) exposure to other viral communicable diseases; Z79.01 Long term (current) use of anticoagulants; Z98.42 Cataract extraction status, left eye; Z98.41 Cataract extraction status, right eye; Z87.891 Personal history of nicotine dependence; Z28.21 Immunization not carried out because of patient refusal; Z79.899 Other long term (current) drug therapy
CPT/HCPCS: 10195; 50010; 50101; 50382; 50414; 51412; 56525; 56530; 57095; 57115; 58135; 58164; 58347; 58348; 62110; 62900; 70005

== ENCOUNTER 2020-04-19 15:22 | Inpatient (IN) | payer OTHER, BC ==
[~2020-04-19] VITALS: Ht 170.2 cm; Wt 67.9 kg
[~2020-04-19 15:22] MED LIST changes: +ASA81BEC PO; +DEPAKOTE 250MG250 MG PO; +FISH OIL 1,0001 EAC9 PO; +FOSAMAX 70 MG T70 MG PO; +NORVASC 2.5 MG2.5 M1 PO; +VITAMIN C500 M1 PO; +WARFARIN SODIUM4 MG PO; +XANAX 0.25 MG0.25 MG PO
[2020-04-19 15:34] VITALS: BP 142/78
[2020-04-19 18:28] LABS: HEMATOCRIT 35.6 % (42.0-52.0); HEMOGLOBIN 11.4 gm/dL (14.0-18.0); MCH 28.9 pg (26.0-34.0); MCHC 32.2 g/dL (28.0-37.0); MCV 89.8 fL (80.0-100.0); RBC 3.96 mil/uL (4.50-6.00); RDW 17.3 % (10.5-14.5); WBC 7.5 thou/uL (4.0-11.0)
[2020-04-19 18:32] LABS: CREATININE 0.7 mg/dL (0.7-1.3); POTASSIUM 3.9 mmol/L (3.5-5.1)
[2020-04-19 18:38] LABS: TOTAL BILIRUBIN 0.6 mg/dL (0.2-1.0); TOTAL PROTEIN 7.4 g/dL (6.4-8.2)
[2020-04-19 18:41] LABS: INR 3.7; PROTIME 37.9 Seconds (9.3-11.4)
[2020-04-19] MEDS ORDERED: LIPITOR10 MG PO (18:42)
[2020-04-19] MEDS ORDERED: FOSAMAX 70 MG T70 MG PO (18:45)
[2020-04-19 19:50] VITALS: BP 148/70
[2020-04-19 19:56] VITALS: BP 140/67
[2020-04-19 21:33] VITALS: BP 150/73
[2020-04-20 00:35] VITALS: BP 127/76
--- NOTE | 2020-04-20 01:24 | NUR ---
Pt admitted from ED approx 2044. A/OX4,VSS. C/o pain to left hip with movement but declined need for pain meds. Consents signed. Fall education reinforced and patient agrees to call before getting out of the bed. Voiding per urinal w/o any problems noted;has a large inguinal hernia indicates it doesn't bother him at the moment. Pt can't remember the last dosing of coumadin he took;will call in the morning to verify. Resting quietly at this time will continue to monitor pt. Fall precauitons in place.
[2020-04-20 08:19] VITALS: BP 135/84
[2020-04-20 08:38] LABS: INR 2.4; PROTIME 25.5 Seconds (9.3-11.4)
--- NOTE | 2020-04-20 11:31 | NUR ---
ASSUMED PT CARE THIS AM. PT VSS, A&OX4. PT PLEASANT, MAKES NEEDS KNOWN TO STAFF. PATIENT AMBULATED WITH PHYSICAL THERAPY TO THE BEDSIDE COMMODE AND THE CHAIR, OTHERWISE USING THE BEDPAN THIS MORNING. REPORTING NO PAIN. ON ROOM AIR. IV PATENT, SALINE LOCKED. ENCOURAGING FLUIDS, AND ENCOURAGING PATIENT TO REPOSITION WELL. FALL PRECAUTIONS IN PLACE.
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
[2020-04-20] MEDS ORDERED: METOPROLOL SUCC25 M1 PO (14:55)
[2020-04-20 16:45] VITALS: BP 137/78
[2020-04-20 20:20] VITALS: BP 128/73
--- NOTE | 2020-04-21 04:45 | NUR ---
VSS-AFEBRILE. NO C/O PAIN. VOIDED PER URINAL OVERNIGHT WITHOUT DIFFICULTY. RESTED WELL THROUGH NIGHT WITH FEW NEEDS. REFUSED EVERY TWO HOUR TURNS, PREFERS TO ADJUST AND REPOSITION SELF. FALL PRECAUTIONS IN PLACE, CALLS APPROPRIATELY FOR ANY NEEDED ASSISTANCE.
[2020-04-21 07:55] VITALS: BP 120/77
[2020-04-21 09:23] VITALS: BP 120/77
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
--- NOTE | 2020-04-21 12:20 | NUR ---
PT CARE ASSUMED AT 0700. A&Ox4. UP WITH WALKER AND GAITBELT, NON WEIGHTBEARING ON L. L. EXTREMITY. NO COMPLAINTS OF PAIN. TAKES MEDS WITH APPLESAUCE PER PT REQUESTS. IV PATENT WITH NO REDNESS OR EDEMA, SALINE LOCKED. FALL PROTOCOL IN PLACE. CALL LIGHT IN REACH. URINAL AT BEDSIDE.
== END 2020-04-21 14:44 | DRG 535 ==
LOC: ER 15:22 → 4S 19:23 → EROBS 19:23 → 4S 19:57
PROVIDERS: Nurse Practitioner Family; ADMIT Family Medicine; ATTEND Family Medicine
DX: S32.592A Other specified fracture of left pubis, initial encounter for closed fracture (principal); S32.402A Unspecified fracture of left acetabulum, initial encounter for closed fracture; D68.69 Other thrombophilia; I48.91 Unspecified atrial fibrillation; Z20.822 Contact with and (suspected) exposure to COVID-19; I10 Essential (primary) hypertension; E78.5 Hyperlipidemia, unspecified; Z96.641 Presence of right artificial hip joint; D64.9 Anemia, unspecified; M16.11 Unilateral primary osteoarthritis, right hip; Z98.42 Cataract extraction status, left eye; Z98.41 Cataract extraction status, right eye; Z79.82 Long term (current) use of aspirin; Z79.899 Other long term (current) drug therapy; Z87.891 Personal history of nicotine dependence; W18.39XA Other fall on same level, initial encounter; Y93.89 Activity, other specified; Y92.098 Other place in other non-institutional residence as the place of occurrence of the external cause; Y99.8 Other external cause status
CPT/HCPCS: 10102

== ENCOUNTER 2020-04-21 09:21 | Inpatient (IN) | payer OTHER, BC ==
[~2020-04-21] VITALS: Ht 170.2 cm; Wt 63.5 kg
[~2020-04-21 09:21] MED LIST changes: +LIPITOR10 MG PO; +METOPROLOL SUCC25 M1 PO
[2020-04-21 14:50] VITALS: BP 120/64
--- NOTE | 2020-04-21 15:00 | NUR ---
ASSUMED CARE AT 1500. NEW ADMISSION FROM [facility]. ALERT AND ORIENTATED, AT TIMES FORGETFUL. CAME IN THE UNIT IN A RECLINER WITH HIS SPOUSE AT THE BEDSIDE. DENIES ANY PAIN, SITTING COMFORTABLY IN HIS RECLINER. BRUISES NOTED IN THE L HIP AREA. DENIES ANY NUMBNESS OR TINGLING. PT IS NWB ON LLE. PT HAS A SCROTAL ENLARGEMENT DUE TO HERNIA. ABLE TO VOID AND HAVE A BM. PT DOES REPORT URGENCY AND WILL NEED A URINAL CLOSE BY. INTERDRY APPLIED TO SIDE OF GROIN. NO SIGN OF FUNGAL INFECTION. SKIN INTACT. ADMISSION DONE AND DOCUMENTED WITH SPOUSE ASSISTING WITH HISTORY. VSS. ROOM ORIENTATION DONE, FALL PRECAUTION IN PLACE, ALL QUESTION AND CONCERNS ANSWERED. CALL LIGHT WITHIN REACH.
[2020-04-21 19:30] VITALS: BP 103/51
[2020-04-22 05:32] LABS: CALCIUM 7.6 mg/dL (8.5-10.1); CREATININE 0.8 mg/dL (0.7-1.3); POTASSIUM 3.6 mmol/L (3.5-5.1)
[2020-04-22 05:36] LABS: HEMATOCRIT 32.3 % (42.0-52.0); HEMOGLOBIN 10.9 gm/dL (14.0-18.0); MCH 30.2 pg (26.0-34.0); MCHC 33.6 g/dL (28.0-37.0); MCV 89.8 fL (80.0-100.0); RBC 3.6 mil/uL (4.50-6.00); RDW 16.5 % (10.5-14.5); WBC 7.2 thou/uL (4.0-11.0)
[2020-04-22 08:00] VITALS: BP 116/62
[2020-04-22 11:05] LABS: FOLIC ACID 12.6 ng/mL (8.6-58.9)
[2020-04-22 11:12] LABS: INR 1.2; PROTIME 12.5 Seconds (9.3-11.4)
--- NOTE | 2020-04-22 11:44 | NUR ---
ASSUMED CARE AT 0700. SLEPT WELL. ALERT AND ORIENTATED TO SELF, PLACE AND SITUATION BUT SEEMS A LITTLE FORGETFUL AND CONFUSED TODAY. DENIES ANY PAIN AT REST. PT REQ FOR MIRALAX AND REPORTED HE NEEDS TO HAVE A BM TODAY. GIVEN MIRALAX. ALSO NOTED HIS URINE IS CLOUDY AND ORDERS REC FOR A UA. TOLERATED HIS AM MED WITH APPLE SAUCE. PARTICIPATING WITH THERAPY.
--- NOTE | 2020-04-22 12:44 | NUR ---
Nutrition: pt admitted to rehab post fall with left acetabular fracture. Consult received. PMH: HTN, HLD, glaucoma, afib. On folic acid, B12, vitamin D, colace and ascorbic acid supplementation. Pt is eating well, 80-100% of meals. Reported weight loss down to 115# several months ago but has since regained and current weight around usual. pt unsure of etiology of weight loss. Denies offer of supplements. More concerned about having BM as has been 2-3 days. On bowel regimen. Severe orbital wasting is observed however pt lacks 2nd criterion for a malnutrition dx. Consider low nutrition risk.
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
[2020-04-22 18:35] LABS: URINE BILIRUBIN NEGATIVE (Negative); URINE BLOOD 2+ (Negative); URINE CLARITY CLEAR; URINE COLOR YELLOW; URINE GLUCOSE-RANDOM* NEGATIVE (Negative); URINE KETONES NEGATIVE (Negative); URINE NITRITE-REFLEX NEGATIVE (Negative); URINE PROTEIN (DIPSTICK) 1+ (Negative); URINE SPECIFIC GRAVITY >= 1.030 (1.005-1.035)
[2020-04-22 18:36] LABS: URINE LEUKOCYTES-REFLEX 2+ (Negative)
[2020-04-22 18:45] LABS: CASTS None Seen /LPF (None Seen); MUCUS None Seen strn/LPF (None Seen); SQUAMOUS 0-3 Few /LPF (0-3); URINE WBC-REFLEX >25 Many /HPF (0-5)
[2020-04-22 18:46] LABS: CRYSTALS None Seen /LPF (None Seen); URINE RBC 0-2 Rare /HPF (0-2)
[2020-04-22 20:15] VITALS: BP 131/68
--- NOTE | 2020-04-23 00:41 | NUR ---
PT ASSESSMENT COMPLETED AND VSS. MEDS GIVEN ORDERED AND WELL TOLERATED. FALL PRECAUTIONS IN PLACE. ASST WITH REPOSITION FOR COMFORT. VOIDING MODERATE AMOUNT OF YELLOW URINE WITH URINAL. PT DENIES PAIN/N/SOA. SLEEPING WELL. WILL CONTINUE TO MONITOR FREQUENTLY. MODERATE BM AT HS.
[2020-04-23 05:40] LABS: INR 1.2; PROTIME 13.2 Seconds (9.3-11.4)
[2020-04-23 19:40] VITALS: BP 108/58
--- NOTE | 2020-04-24 03:28 | NUR ---
assumed care approx 1900 evening 04/23. pt alert and oriented x4, pleasant and cooperative. pt sitting up at change of shift reading the newspaper in bed. boot on left foot with alarm in place. pt voiding per urinal with scrotum enlarged. bed alarm on and call light in reach. will continue to monitor.
[2020-04-24 04:54] LABS: INR 1.3; PROTIME 13.9 Seconds (9.3-11.4)
[2020-04-24 07:15] VITALS: BP 112/60
--- NOTE | 2020-04-24 10:49 | NUR ---
ASSUMED CARE AT 0700. PATIENT IS ALERT AND ORIENTED X4. PATIENT HUDSON'S, CABLE FERRY OPERATOR ARE EQUAL. LUNGS ARE CLEAR AND DEMINISHED. ABD IS SOFT WITH BSX4. PATIENT HAS HERNIA WITH SCOTAL EDEMA 4-5+. PATIENT CONTINUES ON PO ABT. PATIENT IS NON-WT BEARING FOR 4 WKS. FALL AND SAFETY PROTOCOLS IN PLACE. DENIES PAIN AT THIS TIME. WILL CONTINUE TO MONITER.
[2020-04-24 20:20] VITALS: BP 107/49
--- NOTE | 2020-04-24 22:15 | NUR ---
PT ALERT AND ORIENTED X 4. PT TAKES MEDS IN APPLESAUCE WITHOUT DIFFICULTY. SCROTAL EDEMA NOTED. PT DENIES PAIN OR DISCOMFORT. BED ALARM ON FOR SAFETY. PT CHECKED ON HOURLY ROUNDS.
[2020-04-25 05:45] LABS: INR 1.5; PROTIME 16.2 Seconds (9.3-11.4)
--- NOTE | 2020-04-25 06:11 | NUR ---
PT VOIDING PER URINAL. DENIES PAIN. RESTING COMFORTABLY. NO NEEDS VOICED. CALL LIGHT WITHIN REACH. FREQUENT OBSERVATION.
[2020-04-25 07:49] VITALS: BP 117/69
[2020-04-25 19:21] VITALS: BP 129/68
--- NOTE | 2020-04-26 02:42 | NUR ---
ASSUMED CARE APPROX 1900 EVENING 04/25. PT LYING IN BED WITH HEAD OF BED ELEVATED AT CHANGE OF SHIFT. PT ALERT AND ORIENTED X4, PLEASANT AND COOPERATIVE. PT VOIDING PER URINAL. PT DENIES COMPLAINTS AND STATES HE DOES NOT NEED SCHEDULED TYLENOL. PT TAKING MEDS WITH APPLESAUCE TOLERATING WELL. PT APPEARS TO BE SLEEPING SOUNDLY. BED ALARM ON AND CALL LIGHT IN REACH. WILL CONTINUE TO MONITOR.
[2020-04-26 05:47] LABS: INR 1.7; PROTIME 17.7 Seconds (9.3-11.4)
[2020-04-26 08:00] VITALS: BP 140/67
[2020-04-26 10:47] LABS: HEMATOCRIT 34.3 % (42.0-52.0); HEMOGLOBIN 11.2 gm/dL (14.0-18.0); MCH 29.5 pg (26.0-34.0); MCHC 32.6 g/dL (28.0-37.0); MCV 90.5 fL (80.0-100.0); RBC 3.79 mil/uL (4.50-6.00); RDW 16.6 % (10.5-14.5); WBC 5.5 thou/uL (4.0-11.0)
[2020-04-26 10:55] LABS: CALCIUM 8.4 mg/dL (8.5-10.1); CREATININE 0.6 mg/dL (0.7-1.3); POTASSIUM 4.4 mmol/L (3.5-5.1)
--- NOTE | 2020-04-26 13:12 | NUR ---
ASSUMED CARE AT 0700. SLEPT WELL. ALERT AND ORIENTATED, AT TIMES FORGETFUL. DENIES ANY PAIN FOR NOW AND WAS MEDICATED EARLIER WITH TYLENOL. APPETITE GOOD. ON MIRALAX AND HAD A GOOD BM YESTERDAY. CURRENTLY BEING TREATED FOR UTI WITH KEFLEX, URINE IS CLEAR WITH NO ODOR. PT HAS A SPECIAL BOOTS WITH ALARM TO ALERT PT ABOUT WEIGHT BEARING STATUS. DIURESING, USING THE URINAL. PARTICIPATE WITH THEAPY.
[2020-04-26 19:26] VITALS: BP 133/65
--- NOTE | 2020-04-26 21:46 | NUR ---
ASSESSED AT START OF SHIFT. PT A&OX4. TYLENOL GIVEN FOR LEFT HIP PAIN AND OLD LIDOCAINE PATCH REMOVED. PT VOIDS VIA URINAL. REPOSITIONED FOR COMFORT. EVENING MEDS GIVEN WHOLE WITH WATER ONE AT A TIME AND PT MILLICENT IT WELL. DENIES N/V. FALL PREC IN PLACE AND CALL LIGHT AT REACH WILL CONT TO MONITOR.
[2020-04-27 06:13] LABS: INR 1.6
[2020-04-27 07:32] VITALS: BP 136/80
--- NOTE | 2020-04-27 11:30 | NUR ---
ASSUMED CARE AT 0700. SLEPT FAIRLY WELL. ALERT AND ORIENTATED. PAIN IS STABLE AND CONTROLLED WITH [facility] TYLENOL AND LIDOCAINE PATCH. APPETITE GOOD, HAD A BM TODAY. DIURESING ADEQ. UP WITH SLIDE BOARD TO WC. PARTICIPATING WITH THERAPY. BOTTOM SLIGHTLY PINK AND MEDICATED WITH BARRIER CREAM.
--- NOTE | 2020-04-27 13:02 | NUR ---
team meeting, reccommendation: outpt claudia leblanc after dc and gave card to pt to hallie appointment after dc. anticipated dc on with traning with . if house not ready he will need to be dc to handicap accessible motel with his . hh ( pt, ot, st, nursing) may need manula wheel chair.
[2020-04-27 19:10] VITALS: BP 117/73
--- NOTE | 2020-04-28 01:07 | NUR ---
USING URINAL DESPITE SIGNIFICANT HERNIA. PATIENT HAD BM 04/27, TAKES DAILY MIRALAX. RESTING IN BED NOW, HAS SHOE WITH ALARM TO REMIND/ENFORCE NON-WEIGHT BEARING STATUS.
[2020-04-28 05:57] LABS: INR 1.6; PROTIME 17.5 Seconds (9.3-11.4)
[2020-04-28 08:20] VITALS: BP 121/71
--- NOTE | 2020-04-28 08:48 | NUR ---
ASSUMED CARE AT 0700. PATIENT IS ALERT AND ORIENTED X4. PATIENT IS NON-WT BEARING ON THE LEFT. PATIENT IS A SLIDE BOARD TRANSFER TO [facility]. LUNGS ARE CLEAR AND DEMINISHED. ABD IS SOFT WITH BSX4. PATIENT VOIDS ABMER COLORED URINE PER URINAL. FALL AND SAFETY PROTOCOLS IN PLACE. DENIES PAIN. SCOTUM IS 3-4 + R/T HIS HERNIA. PATIENT CONTINUES TO PROGRESS TOWARDS D/C GOALS. WILL CONTINUE TO MONITER.
--- NOTE | 2020-04-28 13:03 | NUR ---
Nutrition followup: pt continues on rehab unit S/P fall with left acetabular fracture. Meds/labs reviewed. Continues to have excellent appetite eating 100% of most meals. Noted prior ensure order and pt is not drinking, will D/C. No weight since 04/21. Continues on bowel regimen and pt reports this is improved. Continue as low nutrition risk.
[2020-04-28 19:30] VITALS: BP 120/76
--- NOTE | 2020-04-28 20:30 | NUR ---
CONCERNED ABOUT HEMATURIA THIS AFTERNOON. NOW HAS 225 CC OF DEBORAH URINE WITH A DROP OF PINK URINE AT MEATUS. BLADDER SCAN SHOWS 20 CC. EXPLAINED TO PATIENT.
--- NOTE | 2020-04-29 01:43 | NUR ---
USING URINAL WITH DEBORAH OUTPUT, AGAIN WITH CLEAR PINK DROP AT MEATUS DURING PROCESS OF VOIDING. DECLINES TYLENOL AT HS, MAY WANT DOSE AGAIN IN THE AM THAT HELPED HIM WITH THERAPY.
[2020-04-29 05:54] LABS: PROTIME 20.8 Seconds (9.3-11.4)
[2020-04-29 07:15] VITALS: BP 135/70
--- NOTE | 2020-04-29 11:51 | NUR ---
ASSUMED CARE AT 0700. SLEPT WELL. ALERT AND ORIENTATED. DENIES ANY PAIN FOR NOW. PAIN IS CONTROLLED WITH JAMISON TYLENOL AND LIDOCAINE PATCH. APPETITE GOOD, ON DAILY MIRALAX AND COLACE AND HAD A BM TODAY. TOLERATED HIS AM MEDS WITH APPLE SAUCE. NO SIGN OF HEMATURIA TODAY BUT THERE WAS SOME BLOOD STREAKS IN THE BATHROOM WHEN PT HAD HIS BM. INR 2.0 AND IS JAMISON TO GET COUMADIN. RSUTHI DESAI NOTIFIED. PARTICIPATING WITH THERAPY AND PROGRESSING TOWARDS GOAL. TRANSFER WITH SLIDE BOARD.
[2020-04-29 20:00] VITALS: BP 108/64
--- NOTE | 2020-04-30 02:40 | NUR ---
assumed care approx 0 evening 04/29. pt alert and oriented x4, pleasant and cooperative. pt stated he felt he was making progress with his therapy. pt voiding per urinal. pt appears to be sleeping soundly. bed alarm on and call light in reach. will continue to monitor.
[2020-04-30 07:15] VITALS: BP 107/71
--- NOTE | 2020-04-30 12:15 | NUR ---
ASSUMED CARE AT 0700. SLEPT WELL. ALERT AND ORIENTATED X 3. REFUSED HIS LIDOCAINE THIS MORNING. DENIES ANY PAIN. APPETITE GOOD, HAD COUPLE OF BM YESTERDAY AND REFUSED HIS MIRALAX TODAY. DIURESING ADEQ WITH NO REPORTED HEMATURIA. BARRIER CREAM APPLIED TO BOTTOM. PARTICIPATING WITH THERAPY AND PROGRESSING TOWARDS GOAL. TRANSFERS WITH SLIDEBOARD TO WC. NWB TO LLE.
[2020-04-30 20:00] VITALS: BP 123/73
--- NOTE | 2020-05-01 03:44 | NUR ---
assumed care approx 1900 evening 04/30. pt alert and oriented x4, pleasant and cooperative, calm and cooperative. pt took hs meds with water tolerating well. pt voiding per urinal. pt appears to be sleeping soundly. bed alarm on and call light in reach. will continue to monitor.
[2020-05-01 04:56] LABS: ABSOLUTE NEUTROPHILS 4.6 thou/uL (1.4-8.2); BASOPHILS 0.9 % (0.0-2.0); EOSINOPHILS 3.1 % (0.0-3.0); HEMATOCRIT 33.8 % (42.0-52.0); HEMOGLOBIN 11.2 gm/dL (14.0-18.0); LYMPHOCYTES 15.7 % (24.0-44.0); MCH 29.5 pg (26.0-34.0); MCV 89.4 fL (80.0-100.0); MONOCYTES 11.1 % (1.0-8.0); PLATELET COUNT 455 thou/uL (150-400); POLYS 69.2 % (36.0-66.0); RBC 3.78 mil/uL (4.50-6.00); RDW 16.3 % (10.5-14.5); WBC 6.6 thou/uL (4.0-11.0)
[2020-05-01 05:11] LABS: INR 2.3
[2020-05-01 05:42] LABS: CALCIUM 8.5 mg/dL (8.5-10.1); CREATININE 0.7 mg/dL (0.7-1.3); MAGNESIUM 1.8 mg/dL (1.8-2.4); POTASSIUM 3.7 mmol/L (3.5-5.1)
[2020-05-01 07:12] VITALS: BP 124/67
--- NOTE | 2020-05-01 08:10 | NUR ---
ASSUMED CARE AT 0700. PATIENT IS ALERT AND ORIENTED X4. PATIENT IS NON-WT BEARING ON THE LEFT LEG. LUNGS ARE CLEAR AND DEMINISHED. ABD IS SOFT WITH BSX4. PATENT VOIDS PER URINAL DEBORAH COLORED URINE. FALL AND SAFETY PROTOCOLS IN PLACE. DENIES PAIN. CONTINUES TO PROGRESS TOWARDS D/C GOALS. WILL CONTINUE TO MONITER.
[2020-05-01 19:25] VITALS: BP 102/57
--- NOTE | 2020-05-02 02:31 | NUR ---
VOIDING CAREFULLY AROUND SCROTUM ENLARGED FROM HERNIA, OCCASIONAL BLOOD AT MEATUS, NYSTATIN TO PINK AREAS IN GROIN. TAKES MEDS WHOLE IN APPLESAUCE. USES SLIDE BOARD TO TRANSFER FROM WC TO BED WITH STANDBY ASSIST
[2020-05-02 04:12] LABS: INR 2.7; PROTIME 28.2 Seconds (9.3-11.4)
[2020-05-02 07:37] VITALS: BP 114/58
--- NOTE | 2020-05-02 10:22 | NUR ---
ASSUMED CARE OF PT AT 0715. PT IS A&OX4. IS ON ROOM AIR. REPORTS PAIN 1/10 IN RLE. DENIES PAIN IN LLE. IS STABLE. IS ON ROOM AIR. IS UP WITH GB, SLIDE BOARD TRANSFER TO . IS NON WT BEARING ON THE LLE. FALL PRECAUTIONS & HOURLY ROUNDING CONTINUED THIS SHIFT. LABS & VITALS REVIEWED. VOIDS PER URINAL. CALL LIGHT WITHIN REACH. WILL CONTINUE TO MONITOR. SPECIAL SHOE WITH ALARM IN ROOM.
[2020-05-02 19:31] VITALS: BP 93/56
--- NOTE | 2020-05-03 00:50 | NUR ---
AFTER USING URINAL, PATIENT TAKES CARE TO DRY HIMSELF, APPRECIATES NYSTATIN POWDER TO GROIN. WAS UP IN CHAIR MOST OF EVENING, WAS ABLE TO PIVOT BACK TO BED WITHOUT BEARING WEIGHT ON LEFT LEG. DECLINES SCHEDULED TYLENOL DUE TO HAVING ALMOST NO PAIN AT ALL
[2020-05-03 05:38] LABS: INR 2.5; PROTIME 25.8 Seconds (9.3-11.4)
[2020-05-03 08:00] VITALS: BP 120/57
--- NOTE | 2020-05-03 11:00 | NUR ---
ASSUMED CARE AT 0700. SLEPT WELL. ALERT AND ORIENTATED X 3. DENIES ANY PAIN. HAS BEEN REFUSING TYLENOL JAMISON AND LIDOCAINE PATCH. PT IS TRANSFERRING BETTER WITH PIVOT AND STAND. TOOK HIS MIRALAX TODAY AND REFUSED HIS COLACE. LAST BM 05/02. APPETITE GOOD. NYSTATIN POWDER APPLIED TO SCROTAL AREA. BARRIER CREAM APPLIED TO BOTTOM AND AREA HEALING. TOLERATED ALL MEDS WITH APPLE SAUCE. DIURESING ADEQ. NO HEMATURIA NOTED. PARTICIPATING WITH THERAPY. PLAN FOR DC HOME ON 05/07/2020.
--- NOTE | 2020-05-03 15:21 | NUR ---
[facility] will deliver light wt wheel chair and slide board prior to dc on the .
[2020-05-03 19:37] VITALS: BP 157/91
--- NOTE | 2020-05-04 02:35 | NUR ---
PT CARE ASSUMED WITH PT IN BED WITH AT BEDSIDE.PT IS A/O X4.PT IS UP WITH X1 ASSIST TRANSFER PIVOT TO W/C OR BSC.PT IS NON WEIGHT BEARING ON LT FOOT.PT HAD A BM YESTERDAY NIGHT.PT REFUSED SCHEDULE TYLENOL.REDNESS ON SCROTUM AREA TO APPLY NYSTATIN AND BARRIER CREAM ON BOTTOM.WILL CONTINUE TO MONITOR PER POC
[2020-05-04 07:15] VITALS: BP 153/83
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
--- NOTE | 2020-05-04 15:05 | PLAN ---
[facility] [place] [address] REHAB UNIT PLAN OF CARE Name: DIMPLE LIMON Room #: 512-P ADM IN M.R.#: [id number] Admission: 04/21/20 Attend Phys: Franc Spring MD Discharge: Date of : 35 Report #: [id number] THIS REPORT FOR: cc: Anthony Bruce MD, Neal A. MD Smithson,Franc Pink MD ~ DATE OF SERVICE: 04/23/2020 PROGRESS NOTE AND OVERALL PLAN OF CARE SUBJECTIVE: The patient is seen on the inpatient rehabilitation [place]. He is pleasant, alert, in no distress. Follows basic 1 step commands without difficulty. He has a history of atrial fibrillation and has been on chronic Coumadin. He does have some decreased short-term memory. He has a large left inguinal hernia. No focal calf swelling. He is max assist sit to stand, max assist to try to hop in the parallel bars. He is dependent toileting. He has been working on some basic wheelchair mobility. Agree with the progress note by Angeli Joshi as documented. ASSESSMENT: 1. Fall with left acetabular fracture, nonweightbearing left lower extremity x 4 weeks. 2. Fall with left inferior pubic rami fracture. 3. Urinary tract infection. 4. Atrial fibrillation, on chronic anticoagulation. 5. Degenerative arthritis with previous hip replacement. 6. Large left inguinal hernia. Currently being managed conservatively. 7. Mild anemia. 8. Hypertension. 9. Hyperlipidemia. PLAN: The overall plan of care is based on the preadmission screen and information garnered from therapy assessments. 1. Estimated length of stay is probably around 14-21 days. 2. Medical prognosis is reasonably good. 3. Anticipated interventions includes the interdisciplinary acute inpatient rehabilitation program. 4. Anticipated functional outcomes would be for the patient to become modified independent with basic bed mobility and transfers and with ADLs as well as improvement in cognition. 5. Discharge destination is back to the home setting with to arrange main floor family room into a bedroom, so he can avoid any stairs. 6. Expected therapy by discipline includes the following, PT, OT and speech [address] [address] REHAB UNIT PLAN OF CARE Name: DIMPLE LIMON Room #: 512-P [facility] IN .R.#: [id number] Admission: 04/21/20 Attend Phys: Franc Spring MD Discharge: Date of : 35 Report #: [id number] hour per day each five days a week throughout the duration of the acute inpatient rehabilitation stay. <ELECTRONICALLY SIGNED> By: Franc Spring MD 05/04/20 1505 [id number] Franc Spring MD /nt
[2020-05-04 19:35] VITALS: BP 106/52
--- NOTE | 2020-05-05 00:28 | NUR ---
assumed care approx 0 evening 05/04. pt sitting up in w/c at change of shift alert and oriented x4, pleasant and cooperative. pt voiding per urinal. pt somewhat forgetful. pt took hs meds with water tolerating well. pt now in bed appears to be sleeping soundly. bed alarm on and call light in reach. will continue to monitor.
[2020-05-05 07:15] VITALS: BP 140/64
--- NOTE | 2020-05-05 08:23 | NUR ---
ASSUMED CARE AT 0700. PATIENT IS ALERT AND ORIENTED X4. PATIENT HU[employer], LOCAL AREA NETWORK SYSTEMS ADMINSTRATOR ARE EQUAL. LUNGS ARE CLEAR. ABD IS SOFT WITH BSX4. PATIENT IS NON-WT BEARING ON THE LEFT. PATIENT VOIDS DEBORAH COLORED URINE PER URINAL. UP IN W/C FOR BREAKFAST. PATIENT IS TO CALL FOR MEDS PER S.T. PATIENT SCROTUM HAS 2+ EDEMA. FALL AND SAEFTY PROTOCOLS IN PLACE. DENIES PAIN. CONTINUES TO PROGRESS SLOWLY TOWARDS D/C GOALS. WILL CONTINUE TO MONITER.
--- NOTE | 2020-05-05 12:40 | NUR ---
Nutrition followup: pt continues to eat very well, 100% of meals on regular diet. Stable weights. 05/03 BM. On several vitamins: folic acid, ascorbic acid, B12, vitamin D. Plan D/C 05/07. Low nutrition risk.
[2020-05-05 19:24] VITALS: BP 117/60
--- NOTE | 2020-05-06 01:07 | NUR ---
assumed pt care at 1900, pt is awake, laying in bed, talking on the phone, appears to be in no distress, assessments as charted, took meds without difficulty, voiding per urinal, scrotal edema, noted, denies needs, sleeping, will continue to monitor and follow poc
[2020-05-06 05:49] LABS: INR 2.9; PROTIME 30.3 Seconds (9.3-11.4)
[2020-05-06 08:19] VITALS: BP 138/66
--- NOTE | 2020-05-06 08:36 | NUR ---
Nutrition: pt continues to eat very well, 100% of meals on regular diet. Stable weights. 05/05 BM. On several vitamins: folic acid, ascorbic acid, B12, vitamin D. Plan D/C 05/07. Low nutrition risk.
--- NOTE | 2020-05-06 12:19 | NUR ---
ASSUMED CARE AT 0700. SLEPT WELL. ALERT AND ORIENTATED, FORGETFUL AT TIMES. DENIES ANY PAIN FOR NOW. APPETITE GOOD, LAST BM 05/05, TOOK MIRALAX AND COLACE TODAY. DIURESING ADEQ WITH NO VISIBLE HEMATURIA. ON DAILY COUMADIN FOR AFIB. ABLD TO TRANSFER WITH STAND/PIVOT, STILL NWB TO LLE. PLAN FOR DC HOME TOMORROW WITH HH, PT/OT AND NURSING.
--- NOTE | 2020-05-06 13:40 | NUR ---
cm called [facility] to see if wheel chair could be delivered today rt training with therapy. possible today if have parts delivery driver, if not tomorrow morning. cm called carisa, no answer on cell, left message. cm called cm back, cm re-education on home health and need to know where to send referral to. " not sure hh will work out, i got him bed rail, transport chair and edge for bed since medicare does not cover these items and we have 2nd which is actually medicare and blue [place] is primary. i not going to hurt myself, only can left total 20lbs and i am his only cg and i have to go out of the house daily to met with works on the house. is guess aquinas but if can do i outpt therapy i will."/carisa. emely active listen and re-education on what dme is covered by insurance and hh vs outpt therapy to conserve energy for both homer and her.
--- NOTE | 2020-05-06 16:14 | NUR ---
FAXED REFERRAL TO [facility] HH SPOKE WITH CECILIA IN INTAKE THEY CAN ACCEPT AT [place] 05/07.
[2020-05-06 16:16] VITALS: BP 138/66
[2020-05-06 19:34] VITALS: BP 119/71
--- NOTE | 2020-05-07 02:37 | NUR ---
assumed care approx 1899 evening 05/06. pt lying in bed with head of bed elevated dozing off and on. pt awoke, alert and oriented x4, pleasant and cooperative. pt took hs meds with water tolerating well. pt voiding per urinal. appears to be sleeping well. bed alarm on and call light in reach. will continue to monitor.
[2020-05-07 07:03] LABS: INR 3.5; PROTIME 35.7 Seconds (9.3-11.4)
[2020-05-07 07:15] VITALS: BP 146/70
--- NOTE | 2020-05-07 08:36 | NUR ---
light wt wheel chair that [facility] delivered yesterday evening that chair 20" and that is to big, needs to be 18". [facility] to deliver prior to homer dc today. kang villafana.
[2020-05-07 09:06] VITALS: BP 146/70
--- NOTE | 2020-05-07 09:44 | NUR ---
ASSUMED CARE AT 0700 TODAY. PT. STABLE. SITTING IN BED, EATING BREAKFAST. HE IS PLEASANT AND COOPERATIVE WITH MEDS/MEALS. HE CONTINUES TO BE NONEW WEIGHT BEARING TO LEFT LEG. HE HAS A BOOT WITH AN ALARM SO IF HE PUTS WEIGHT ON IT, IT WILL ALARM. HE HAS BEEN COOPERATIVE WITH THIS. HE IS WEARING BRIEFS DUE TO SOME URINARY ISSUES. HE HAS A SLIDE BOARD IN HIS ROOM. HE HAS EDEMA TO HIS SCROTUM, BUT IT IS ACTUALLY A HERNIA THAT HAS NOT BEEN REPAIRED. NYSTATIN POWDER IS PLACED IN THE CREASES OF HIS LOWER ABDOMEN. HE TAKES HIS MEDICATIONS WITH APPLESAUCE. HE IS READY FOR D/C TODAY, HOWEVER HE IS WAITING FOR A W/C TO BE EXCHANGED. THE W/C THEY BROUGHT HIM IS A 20 BUT HE NEEDS AN 18. WILL CONTINUE TO MONITOR.
--- NOTE | 2020-05-07 14:40 | NUR ---
PT DISCHARGING TODAY TO HOME WITH [facility] FAXED DC ORDERS/SUMMARY SPOKE WITH HORACIO IN INTAKE SHE RECEIVED ORDERS ALSO I MADE SURE THEY HAD PT'S TEMPORARY ADDRESS.
== END 2020-05-07 14:31 | disposition home health service (06) | DRG 536 ==
PROVIDERS: Nurse Practitioner; Nurse Practitioner Family; ADMIT Physical Medicine & Rehabilitation; ATTEND Physical Medicine & Rehabilitation
DX: S32.402A Unspecified fracture of left acetabulum, initial encounter for closed fracture (principal); S32.592A Other specified fracture of left pubis, initial encounter for closed fracture; N39.0 Urinary tract infection, site not specified; E44.0 Moderate protein-calorie malnutrition; E87.1 Hypo-osmolality and hyponatremia; R53.81 Other malaise; W18.39XA Other fall on same level, initial encounter; Y93.89 Activity, other specified; Y92.89 Other specified places as the place of occurrence of the external cause; Y99.8 Other external cause status; I48.91 Unspecified atrial fibrillation; E78.5 Hyperlipidemia, unspecified; M19.90 Unspecified osteoarthritis, unspecified site; D64.9 Anemia, unspecified; I10 Essential (primary) hypertension; K40.90 Unilateral inguinal hernia, without obstruction or gangrene, not specified as recurrent; F01.50 Vascular dementia, unspecified severity, without behavioral disturbance, psychotic disturbance, mood disturbance, and anxiety; F43.29 Adjustment disorder with other symptoms; M06.9 Rheumatoid arthritis, unspecified; B96.20 Unspecified Escherichia coli [E. coli] as the cause of diseases classified elsewhere; Z79.01 Long term (current) use of anticoagulants; Z79.899 Other long term (current) drug therapy; Z98.42 Cataract extraction status, left eye; Z98.41 Cataract extraction status, right eye; Z87.891 Personal history of nicotine dependence; Z68.21 Body mass index [BMI] 21.0-21.9, adult; Z28.21 Immunization not carried out because of patient refusal
CPT/HCPCS: 10112

== ENCOUNTER → 2020-10-25 | Outpatient (CLI) | payer OTHER, BC | LOC: CAT 08:56 | PROVIDERS: ATTEND Internal Medicine Pulmonary Disease | DX: R91.1 Solitary pulmonary nodule (principal); I25.10 Atherosclerotic heart disease of native coronary artery without angina pectoris ==